=== PATIENT | female | born 1995 | race Two or more races ===

== ENCOUNTER → 2024-04-15 13:18 | Outpatient (CLI) | payer OTHER | END | disposition home or self-care (01) | LOC: PRENATAL 13:18 | PROVIDERS: ATTEND Obstetrics & Gynecology Maternal & Fetal Medicine | DX: O26.849 Uterine size-date discrepancy, unspecified trimester (principal); O36.8199 Decreased fetal movements, unspecified trimester, other fetus; Z3A.35 35 weeks gestation of pregnancy ==

== ENCOUNTER 2024-05-15 09:32 | Outpatient (CLI) | payer OTHER | END 2024-05-15 09:33 | disposition home or self-care (01) | LOC: PRENATAL 09:32 | PROVIDERS: ATTEND Obstetrics & Gynecology Maternal & Fetal Medicine | DX: O26.849 Uterine size-date discrepancy, unspecified trimester (principal); O36.8199 Decreased fetal movements, unspecified trimester, other fetus; O99.343 Other mental disorders complicating pregnancy, third trimester; Z3A.36 36 weeks gestation of pregnancy ==

== ENCOUNTER 2024-06-02 18:19 | Inpatient (IN) | payer OTHER ==
[2024-05-24 14:28] LABS: HEMATOCRIT 33.4 % (36.0-45.00); HEMOGLOBIN 11.4 g/dL (12.0-15.00); MEAN CELL VOLUME 83.1 fL (80.00-100.00); MEAN CORPUSCULAR HEMOGLOBIN 28.4 pg (27.00-32.0); MEAN CORPUSCULAR HGB CONC 34.2 g/dl (32.0-36.0); PLATELET COUNT 238 K/uL (150-450); RED BLOOD COUNT 4.01 M/uL (4.00-6.00); RED CELL DISTRIBUTION WIDTH 13.1 % (11.5-14.5)
[2024-05-24 14:46] LABS: INR 0.98; PARTIAL THROMBOPLASTIN TIME 28.9 SECONDS (22.0-34.0); PROTHROMBIN TIME 10.7 SECONDS (9.0-11.5)
[2024-05-24 15:09] LABS: ALBUMIN 2.9 gm/dL (3.4-5.0); BILIRUBIN TOTAL 0.23 mg/dL (0.3-1.2); CALCIUM 9.1 mg/dL (8.5-10.1); CREATININE SERUM 0.59 mg/dL (0.55-1.02); GFR 119.68; GLOBULINA 3.8 G/DL (2.4-3.5); POTASSIUM 4.31 mEq/L (3.5-5.1); TOTAL PROTEIN 6.7 gm/dL (6.4-8.2)
[~2024-06-02] VITALS: Ht 167.6 cm; Wt 3.6 kg
[2024-06-02 19:00] VITALS: BP 128/72; O2SAT 99
[2024-06-02] MEDS ORDERED: CELEXA20 MG PO (19:27)
[2024-06-02] MEDS ORDERED: PRENATAL 19 TA1 EAC2 PO (19:28)
[2024-06-02] MEDS ORDERED: ZOFRAN8 MG PO (19:28)
[2024-06-02] MEDS ORDERED: AMPICILLIN SODIUM 2,000 MG VIAL IV ONE (20:00)
[2024-06-02] MEDS ORDERED: AMPICILLIN SODIUM 1,000 MG VIAL IV SCH (20:00)
[2024-06-02] MEDS ORDERED: RINGERS SOLUTION,LACTATED 1,000 ML IV SCH (20:00)
[2024-06-02] MEDS ORDERED: MISOPROSTOL 25 MCG TABLET VAG SCH (20:15)
[2024-06-02 23:43] VITALS: BP 116/61
[2024-06-03 07:57] VITALS: BP 124/75
[2024-06-03] MEDS ORDERED: MISOPROSTOL 25 MCG TABLET VAG SCH (09:00)
[2024-06-03] MEDS ORDERED: DEXTROSE 5%-LACTATED RINGERS 1,000 ML IV SCH (11:00)
[2024-06-03] MEDS ORDERED: OXYTOCIN 20 UNITS/500ML RL PIGGYBAG IV SCH (11:00)
[2024-06-03 11:43] VITALS: BP 114/65
[2024-06-03 15:53] VITALS: BP 120/78
[2024-06-03] MEDS ORDERED: PROMETHAZINE HCL 25 MG/ML AMPUL IV ONE (16:30)
[2024-06-03] MEDS ORDERED: MEPERIDINE HCL/PF 25 MG/ML VIAL IV ONE (16:30)
[2024-06-03 16:35] VITALS: BP 120/78
[2024-06-03 19:49] VITALS: BP 125/75
[2024-06-03 23:40] VITALS: BP 136/88
[2024-06-04 04:25] VITALS: BP 125/71
[2024-06-04] MEDS ORDERED: CEFAZOLIN SODIUM 1,000 MG VIAL IV SCH (05:00)
[2024-06-04] MEDS ORDERED: MEPERIDINE HCL/PF 50 MG/ML VIAL IM PRN (07:15)
[2024-06-04] MEDS ORDERED: PROMETHAZINE HCL 50 MG/ML AMPUL IM PRN (07:15)
[2024-06-04] MEDS ORDERED: MORPHINE SULFATE 4 MG/ML VIAL IV ONE ×2 (07:25→07:55)
[2024-06-04] MEDS ORDERED: ONDANSETRON HCL 2 MG/ML VIAL IV ONE (07:35)
[2024-06-04] MEDS ORDERED: KETOROLAC TROMETHAMINE 30 MG VIAL IV SCH (09:00)
[2024-06-04] MEDS ORDERED: IBUprofen 800 MG TABLET PO SCH (09:00)
[2024-06-04 10:00] VITALS: BP 118/71
[2024-06-04 17:06] VITALS: BP 110/69
[2024-06-04 21:49] VITALS: BP 112/70
[2024-06-05] VITALS: BP 97/62
[2024-06-05] MEDS ORDERED: OxyCODONE HCL/APAP UD (PERCOCET) PO PRN (08:00)
[2024-06-05 08:09] VITALS: BP 99/58
[2024-06-05 08:30] LABS: HEMATOCRIT 30.9 % (36.0-45.00); HEMOGLOBIN 10.6 g/dL (12.0-15.00); MEAN CELL VOLUME 82.9 fL (80.00-100.00); MEAN CORPUSCULAR HEMOGLOBIN 28.3 pg (27.00-32.0); MEAN CORPUSCULAR HGB CONC 34.1 g/dl (32.0-36.0); PLATELET COUNT 217 K/uL (150-450); RED BLOOD COUNT 3.73 M/uL (4.00-6.00); RED CELL DISTRIBUTION WIDTH 15.3 % (11.5-14.5)
[2024-06-05] MEDS ORDERED: SIMETHICONE 125 MG CAPSULE PO SCH (09:00)
[2024-06-05] MEDS ORDERED: DOCUSATE SODIUM 100MG CAP PO SCH (09:00)
[2024-06-05] MEDS ORDERED: PNV,CALCIUM 72/IRON/FOLIC ACID 1 TAB TABLET PO SCH (09:00)
[2024-06-05 16:00] VITALS: BP 130/79
[2024-06-06] VITALS: BP 118/77
[2024-06-06 09:21] VITALS: BP 122/75
[2024-06-06 21:25] VITALS: BP 134/67
[2024-06-07 01:25] VITALS: BP 126/76
[2024-06-07 08:34] VITALS: BP 131/85
== END 2024-06-07 18:22 | disposition home or self-care (01) | DRG 788 ==
LOC: LDR 18:19 → OB/GYN 06-04 05:34
PROVIDERS: ADMIT Obstetrics & Gynecology; ATTEND Obstetrics & Gynecology
PROC: 3E0P7VZ Introduction of Hormone into Female Reproductive, Via Natural or Artificial Opening (ICD-10-PCS; 2024-06-02)
PROC: 4A1HXCZ Monitoring of Products of Conception, Cardiac Rate, External Approach (ICD-10-PCS; 2024-06-02)
PROC: 3E033VJ Introduction of Other Hormone into Peripheral Vein, Percutaneous Approach (ICD-10-PCS; 2024-06-03)
PROC: 10D00Z1 Extraction of Products of Conception, Low, Open Approach (ICD-10-PCS; principal; 2024-06-04 10:30)
DX: O61.0 Failed medical induction of labor (principal); O33.5XX0 Maternal care for disproportion due to unusually large fetus, not applicable or unspecified; O36.63X0 Maternal care for excessive fetal growth, third trimester, not applicable or unspecified; O33.8 Maternal care for disproportion of other origin; O99.824 Streptococcus B carrier state complicating childbirth; O62.1 Secondary uterine inertia; Z3A.39 39 weeks gestation of pregnancy; Z37.0 Single live birth; Z20.822 Contact with and (suspected) exposure to COVID-19